=== PATIENT | male | born 1935 | race African-American/Black ===

== ENCOUNTER 2017-06-03 12:04 | Inpatient (IN) ==
[2017-06-03] MEDS ORDERED: ONDANSETRON 4 MG/2 ML VIAL IV PRN (13:40)
[2017-06-03] MEDS ORDERED: ASPIRIN 325 MG TABLET PO STA (13:40)
[2017-06-03] MEDS ORDERED: ENOXAPARIN 100 MG/ML SYRINGE SUBCUT STA (13:40)
[2017-06-03] MEDS ORDERED: NITROGLYCERIN 2% OINT 1 INCH/GM PACK TOP STA (13:40)
[2017-06-03] MEDS ORDERED: MORPHINE 2 MG/1 ML SYRINGE IV PRN (13:40)
[2017-06-03] MEDS ORDERED: ENOXAPARIN 120 MG/0.8 ML SYRINGE SUBCUT ONE (13:56)
[2017-06-03] MEDS ORDERED: ASPIRIN 325 MG TABLET ONE (13:57)
[2017-06-03] MEDS ORDERED: ONDANSETRON 4 MG/2 ML VIAL ONE (13:57)
[2017-06-03] MEDS ORDERED: NITROGLYCERIN 2% OINT 1 INCH/GM PACK TOP ONE (13:57)
[2017-06-03] MEDS ORDERED: MORPHINE 2 MG/1 ML SYRINGE ONE (13:57)
[2017-06-03 14:21] LABS: Basophils % 0.5 % (0.0-0.8); Eosinophils # 0.1 10*3/uL (0.0-0.87); Eosinophils % 0.9 % (0.00-10.9); Hematocrit 43.2 VOL% (42.0-52.0); Hemoglobin 13.7 GM/DL (14.0-18.0); Immature Granulocytes % 0.5 %; Immature Granulocytes Absolute 0.03 #; Lymphocytes # 1.2 10*3/uL (1.4-4.0); Lymphocytes % 18.8 % (21.2-54.2); Mean Corpuscular HGB Conc 31.7 GM/DL (32-36); Mean Corpuscular Hemoglobin 27 PG (27-34); Mean Corpuscular Volume 84.9 FL (87-102); Mean Platelet Volume 10.3 FL (9.6-12.0); Monocytes # 0.4 10*3/uL (0.11-0.8); Monocytes % 6.7 % (1.7-12.7); Neutrophils # 4.7 10*3/uL (1.4-7.4); Neutrophils % 72.6 % (38.7-73.9); Platelet Count 208 T/CUMM (130-400); Red Blood Count 5.09 MC/CUMM (3.8-5.5); Red Cell Distribution Width 14.4 % (9.3-17.3); White Blood Count 6.5 T/CUMM (4-12)
[2017-06-03 14:30] LABS: PT Patient Result 10.7 SECS; Partial Thromboplastin Time 25.9 SECS (0-40)
[2017-06-03 14:32] LABS: Apearance,Urine CLEAR (Clear); Bilirubin,Urine Negative (Negative); Blood, Urine Negative (Negative); Glucose,Urine (UA) 50 mg/dL (Negative); Ketones,Urine Negative (Negative); Mucus,Urine Occasional /LPF (Occasional); Nitrite,Urine Negative (Negative); Protein,Urine Negative; RBC,Urine <1 /HPF (0-4); Squamous Epithelial Cell,Urine Occasional /HPF (0-10); Urine Color Straw (Yellow); Urine Urobilinogen < 2.0 EU/DL (0.2-1.0); WBC,Urine <1 /HPF (0-6)
[2017-06-03 14:43] LABS: Albumin 3.9 G/DL (3.4-5.0); Bilirubin,Total 0.9 MG/DL (0.2-1.0); Calcium 8.5 MG/DL (8.5-10.1); Osmolality,Calculated 280.7 MOS/KG (273-304); Potassium 4.5 MMOL/L (3.5-5.1); Total Protein 7.5 G/DL (6.4-8.3)
[2017-06-03] MEDS ORDERED: METOPROLOL TARTRATE 5 MG/5 ML VIAL IV STA (14:58)
[2017-06-03] MEDS ORDERED: METOPROLOL TARTRATE 5 MG/5 ML VIAL IV ONE (15:08)
[2017-06-03] MEDS ORDERED: hydrALAZINE 20 MG/1 ML VIAL IV STA (15:30)
[2017-06-03] MEDS ORDERED: hydrALAZINE 20 MG/1 ML VIAL ONE (15:32)
[2017-06-03] MEDS ORDERED: FUROSEMIDE 40 MG/4 ML VIAL IV STA (16:02)
[2017-06-03 16:20] LABS: Risk Ratio 4.78; VLDL CHOLESTEROL 19.2 MG/DL
[2017-06-03] MEDS ORDERED: FUROSEMIDE 40 MG/4 ML VIAL ONE (16:23)
[2017-06-03] MEDS ORDERED: ACETAMINOPHEN 325 MG TABLET PO PRN (16:28)
[2017-06-03] MEDS ORDERED: MAGNESIUM SULF RIDER 2 GM in PREMIX 1 EACH IV PRN (16:28)
[2017-06-03] MEDS ORDERED: MAGNESIUM SULF RIDER 4 GM in PREMIX 1 EACH IV PRN (16:28)
[2017-06-03] MEDS ORDERED: POTASSIUM CHLORIDE 20 MEQ TABLET PO PRN ×2 (16:28)
[2017-06-03] MEDS ORDERED: ZALEPLON 5 MG CAPSULE PO PRN (16:28)
[2017-06-03] MEDS ORDERED: NITROGLYCERIN SL 0.4 MG TABLET SL PRN (16:28)
[2017-06-03] MEDS ORDERED: INSULIN REGULAR 100 UNIT/ML SUBCUT ONE (16:28)
[2017-06-03] MEDS ORDERED: DEXTROSE 50% 25 GM/50 ML VIAL IV PRN (20:23)
[2017-06-03] MEDS ORDERED: GLUCAGON 1 MG VIAL IM PRN (20:23)
[2017-06-03] MEDS ORDERED: FAMOTIDINE 20 MG TABLET PO SCH (21:00)
[2017-06-03] MEDS ORDERED: CARVEDILOL 3.125 MG TABLET PO SCH (21:00)
[2017-06-03] MEDS ORDERED: GABAPENTIN 300 MG CAPSULE PO SCH (21:00)
[2017-06-04 05:59] LABS: Basophils % 0.4 % (0.0-0.8); Eosinophils # 0.1 10*3/uL (0.0-0.87); Eosinophils % 1.3 % (0.00-10.9); Hematocrit 40.3 VOL% (42.0-52.0); Hemoglobin 13.3 GM/DL (14.0-18.0); Immature Granulocytes % 0.2 %; Immature Granulocytes Absolute 0.01 #; Lymphocytes # 1.3 10*3/uL (1.4-4.0); Lymphocytes % 28.4 % (21.2-54.2); Mean Corpuscular Hemoglobin 27 PG (27-34); Mean Corpuscular Volume 81.9 FL (87-102); Mean Platelet Volume 10.7 FL (9.6-12.0); Monocytes # 0.6 10*3/uL (0.11-0.8); Monocytes % 13.5 % (1.7-12.7); Neutrophils # 2.5 10*3/uL (1.4-7.4); Neutrophils % 56.2 % (38.7-73.9); Platelet Count 203 T/CUMM (130-400); Red Blood Count 4.92 MC/CUMM (3.8-5.5); Red Cell Distribution Width 14.4 % (9.3-17.3); White Blood Count 4.5 T/CUMM (4-12)
[2017-06-04 06:43] LABS: Albumin 3.3 G/DL (3.4-5.0); Bilirubin,Total 0.8 MG/DL (0.2-1.0); Calcium 8.3 MG/DL (8.5-10.1); Osmolality,Calculated 281.5 MOS/KG (273-304); Potassium 3.8 MMOL/L (3.5-5.1); Total Protein 6.4 G/DL (6.4-8.3)
[2017-06-04] MEDS ORDERED: guaiFENesin 200 MG/10 ML UDCUP PO PRN (08:46)
[2017-06-04] MEDS ORDERED: amLODIPine 5 MG TABLET PO SCH (09:00)
[2017-06-04] MEDS: ASPIRIN EC 81 MG TABLET PO SCH (09:00)
[2017-06-04] MEDS: hydrALAZINE 20 MG/1 ML VIAL IV PRN ×2 (09:02→16:12)
[2017-06-04] MEDS: cefTRIAXone 1,000 MG VIAL IM SCH (09:31)
[2017-06-04] MEDS ORDERED: ALBUTEROL/IPRATROPIUM 3 ML NEB RESP TX PRN (10:59)
[2017-06-04] MEDS: METOPROLOL TARTRATE 25 MG TABLET PO SCH ×2 (11:37→21:45)
[2017-06-04] MEDS: ALBUTEROL/IPRATROPIUM 3 ML NEB RESP TX SCH ×2 (13:18→20:10)
[2017-06-04] MEDS: DORNASE ALFA 2.5 MG/2.5 ML VIAL RESP TX SCH ×2 (13:30→20:10)
[2017-06-04] MEDS: ACETAMINOPHEN 325 MG TABLET PO PRN (17:02)
[2017-06-05] MEDS: ALBUTEROL/IPRATROPIUM 3 ML NEB RESP TX SCH ×4 (01:15→19:20)
[2017-06-05] MEDS: DORNASE ALFA 2.5 MG/2.5 ML VIAL RESP TX SCH ×2 (07:17→19:37)
[2017-06-05] MEDS: METOPROLOL TARTRATE 25 MG TABLET PO SCH ×2 (08:58→21:37)
[2017-06-05] MEDS: cefTRIAXone 1,000 MG VIAL IM SCH (08:58)
[2017-06-05] MEDS: ASPIRIN EC 81 MG TABLET PO SCH (08:59)
[2017-06-05] MEDS: hydrALAZINE 20 MG/1 ML VIAL IV PRN ×2 (11:59→17:06)
[2017-06-05] MEDS: ACETAMINOPHEN 325 MG TABLET PO PRN (18:33)
[2017-06-06] MEDS: ALBUTEROL/IPRATROPIUM 3 ML NEB RESP TX SCH ×4 (01:00→20:22)
[2017-06-06] MEDS: hydrALAZINE 20 MG/1 ML VIAL IV PRN ×3 (05:35→16:57)
[2017-06-06 05:54] LABS: Calcium 8.3 MG/DL (8.5-10.1); Osmolality,Calculated 286.4 MOS/KG (273-304); Potassium 4.1 MMOL/L (3.5-5.1)
[2017-06-06] MEDS: DORNASE ALFA 2.5 MG/2.5 ML VIAL RESP TX SCH ×2 (08:20→20:22)
[2017-06-06] MEDS: ASPIRIN EC 81 MG TABLET PO SCH (08:47)
[2017-06-06] MEDS: METOPROLOL TARTRATE 25 MG TABLET PO SCH ×2 (08:47→21:44)
[2017-06-06] MEDS: cefTRIAXone 1,000 MG VIAL IM SCH (08:48)
[2017-06-06] MEDS ORDERED: LOSARTAN 25 MG TABLET PO SCH (12:00)
[2017-06-06] MEDS ORDERED: INSULIN REGULAR 100 UNIT/ML ONE (12:40)
[2017-06-06] MEDS: INSULIN REGULAR 100 UNIT/ML SUBCUT SCH ×3 (12:52→21:46)
[2017-06-06] MEDS: ACETAMINOPHEN 325 MG TABLET PO PRN (21:44)
[2017-06-07] MEDS: ALBUTEROL/IPRATROPIUM 3 ML NEB RESP TX SCH ×4 (00:02→18:50)
[2017-06-07 04:48] LABS: Basophils % 0.7 % (0.0-0.8); Eosinophils % 0.7 % (0.00-10.9); Hematocrit 41.6 VOL% (42.0-52.0); Hemoglobin 13.7 GM/DL (14.0-18.0); Immature Granulocytes % 0.3 %; Immature Granulocytes Absolute 0.01 #; Lymphocytes % 33.6 % (21.2-54.2); Mean Corpuscular HGB Conc 32.9 GM/DL (32-36); Mean Corpuscular Hemoglobin 27 PG (27-34); Mean Corpuscular Volume 81.4 FL (87-102); Mean Platelet Volume 10.4 FL (9.6-12.0); Monocytes # 0.7 10*3/uL (0.11-0.8); Monocytes % 23.3 % (1.7-12.7); Neutrophils # 1.2 10*3/uL (1.4-7.4); Neutrophils % 41.4 % (38.7-73.9); Platelet Count 158 T/CUMM (130-400); Red Blood Count 5.11 MC/CUMM (3.8-5.5); Red Cell Distribution Width 14.8 % (9.3-17.3); White Blood Count 2.9 T/CUMM (4-12)
[2017-06-07 04:49] LABS: PT Patient Result 10.9 SECS; Partial Thromboplastin Time 26.3 SECS (0-40)
[2017-06-07 05:41] LABS: Giant Platelets Few; Hypochromasia 1+; Lymphocytes 35 % (20-55); Platelet Estimate Normal; Segmented Neutrophils 41 % (50-85); Total Cells Counted 100
[2017-06-07 05:42] LABS: Ovalocytes Slight
[2017-06-07] MEDS ORDERED: BENZONATATE 100 MG CAPSULE PO ONE (07:30)
[2017-06-07] MEDS ORDERED: diphenhydrAMINE 50 MG/1 ML VIAL IM ONE (07:30)
[2017-06-07] MEDS ORDERED: MEPERIDINE 50 MG/1 ML VIAL IM ONE (07:30)
[2017-06-07] MEDS: DORNASE ALFA 2.5 MG/2.5 ML VIAL RESP TX SCH ×2 (07:35→18:50)
[2017-06-07] MEDS ORDERED: LIDOCAINE 2% 20 ML VIAL RESP TX ONE (08:00)
[2017-06-07] MEDS ORDERED: LIDOCAINE 2% VISCOUS 100 ML BOTTLE SWISH/SPIT ONE (08:00)
[2017-06-07] MEDS ORDERED: LIDOCAINE 1% 20 ML VIAL MISC INJ ONE (08:00)
[2017-06-07] MEDS: INSULIN REGULAR 100 UNIT/ML SUBCUT SCH ×5 (08:36→21:39)
[2017-06-07] MEDS: ASPIRIN EC 81 MG TABLET PO SCH (08:39)
[2017-06-07] MEDS: METOPROLOL TARTRATE 25 MG TABLET PO SCH ×2 (08:39→21:40)
[2017-06-07] MEDS: cefTRIAXone 1,000 MG VIAL IM SCH (08:45)
[2017-06-07] MEDS ORDERED: LOSARTAN 50 MG TABLET PO SCH (09:00)
[2017-06-07 09:36] LABS: Calcium 8.3 MG/DL (8.5-10.1); Osmolality,Calculated 281.7 MOS/KG (273-304); Potassium 3.8 MMOL/L (3.5-5.1)
[2017-06-07] MEDS ORDERED: EPINEPHrine 1 MG/ML VIAL ET ONE (10:30)
[2017-06-07] MEDS ORDERED: MIDAZOLAM 2 MG/2 ML VIAL IV ONE (10:51)
[2017-06-07] MEDS ORDERED: MIDAZOLAM 2 MG/2 ML VIAL ONE (11:18)
[2017-06-07] MEDS: ACETAMINOPHEN 325 MG TABLET PO PRN (21:39)
[2017-06-07] MEDS: hydrALAZINE 20 MG/1 ML VIAL IV PRN (21:40)
[2017-06-08] MEDS: ALBUTEROL/IPRATROPIUM 3 ML NEB RESP TX SCH ×4 (00:40→20:05)
[2017-06-08 04:42] LABS: Basophils % 0.7 % (0.0-0.8); Eosinophils % 0.7 % (0.00-10.9); Hematocrit 38.7 VOL% (42.0-52.0); Hemoglobin 12.5 GM/DL (14.0-18.0); Immature Granulocytes % 0.4 %; Immature Granulocytes Absolute 0.01 #; Lymphocytes % 33.8 % (21.2-54.2); Mean Corpuscular HGB Conc 32.3 GM/DL (32-36); Mean Corpuscular Hemoglobin 27 PG (27-34); Mean Platelet Volume 11.2 FL (9.6-12.0); Monocytes # 0.7 10*3/uL (0.11-0.8); Monocytes % 23.5 % (1.7-12.7); Neutrophils # 1.2 10*3/uL (1.4-7.4); Neutrophils % 40.9 % (38.7-73.9); Platelet Count 130 T/CUMM (130-400); Red Blood Count 4.66 MC/CUMM (3.8-5.5); Red Cell Distribution Width 14.6 % (9.3-17.3); White Blood Count 2.8 T/CUMM (4-12)
[2017-06-08 05:13] LABS: Eosinophils 1 % (0-10); Lymphocytes 35 % (20-55); Platelet Estimate Adequate; Segmented Neutrophils 44 % (50-85); Total Cells Counted 100
[2017-06-08 05:14] LABS: Atypical Lymphocytes Few
[2017-06-08 05:21] LABS: Osmolality,Calculated 284.7 MOS/KG (273-304); Potassium 3.6 MMOL/L (3.5-5.1)
[2017-06-08] MEDS: DORNASE ALFA 2.5 MG/2.5 ML VIAL RESP TX SCH ×2 (07:06→20:05)
[2017-06-08] MEDS: LOSARTAN 50 MG TABLET PO SCH (08:25)
[2017-06-08] MEDS: ASPIRIN EC 81 MG TABLET PO SCH (08:25)
[2017-06-08] MEDS: INSULIN REGULAR 100 UNIT/ML SUBCUT SCH ×4 (08:25→22:05)
[2017-06-08] MEDS: METOPROLOL TARTRATE 25 MG TABLET PO SCH ×2 (08:26→22:04)
[2017-06-08] MEDS: cefTRIAXone 1,000 MG VIAL IM SCH (08:29)
[2017-06-09] MEDS: ALBUTEROL/IPRATROPIUM 3 ML NEB RESP TX SCH ×4 (00:36→19:31)
[2017-06-09 04:39] LABS: Basophils % 0.8 % (0.0-0.8); Eosinophils # 0.1 10*3/uL (0.0-0.87); Eosinophils % 1.9 % (0.00-10.9); Hematocrit 37.7 VOL% (42.0-52.0); Hemoglobin 12.5 GM/DL (14.0-18.0); Immature Granulocytes % 0.4 %; Immature Granulocytes Absolute 0.01 #; Lymphocytes % 39.2 % (21.2-54.2); Mean Corpuscular HGB Conc 33.2 GM/DL (32-36); Mean Corpuscular Hemoglobin 27 PG (27-34); Mean Corpuscular Volume 80.9 FL (87-102); Mean Platelet Volume 10.6 FL (9.6-12.0); Monocytes # 0.6 10*3/uL (0.11-0.8); Monocytes % 23.1 % (1.7-12.7); Neutrophils # 0.9 10*3/uL (1.4-7.4); Neutrophils % 34.6 % (38.7-73.9); Platelet Count 120 T/CUMM (130-400); Red Blood Count 4.66 MC/CUMM (3.8-5.5); Red Cell Distribution Width 14.4 % (9.3-17.3); White Blood Count 2.6 T/CUMM (4-12)
[2017-06-09 04:49] LABS: Partial Thromboplastin Time 26.1 SECS (0-40)
[2017-06-09 05:01] LABS: Eosinophils 2 % (0-10); Hypochromasia 1+; Lymphocytes 36 % (20-55); Microcytosis 1+; Ovalocytes Slight; Segmented Neutrophils 40 % (50-85); Total Cells Counted 100
[2017-06-09 05:02] LABS: Platelet Estimate Adequate
[2017-06-09] MEDS: INSULIN REGULAR 100 UNIT/ML SUBCUT SCH ×4 (07:48→21:32)
[2017-06-09] MEDS ORDERED: MEPERIDINE 50 MG/1 ML VIAL IM ONE (08:00)
[2017-06-09] MEDS ORDERED: diphenhydrAMINE 50 MG/1 ML VIAL IM ONE (08:00)
[2017-06-09] MEDS ORDERED: BENZONATATE 100 MG CAPSULE PO ONE (08:00)
[2017-06-09] MEDS: DORNASE ALFA 2.5 MG/2.5 ML VIAL RESP TX SCH ×2 (08:01→19:31)
[2017-06-09] MEDS ORDERED: LIDOCAINE 2% 20 ML VIAL RESP TX ONE (08:30)
[2017-06-09] MEDS ORDERED: LIDOCAINE 2% VISCOUS 100 ML BOTTLE SWISH/SPIT ONE (08:30)
[2017-06-09] MEDS ORDERED: EPINEPHrine 1 MG/ML VIAL ET ONE (08:30)
[2017-06-09] MEDS ORDERED: LIDOCAINE 1% 20 ML VIAL MISC INJ ONE (08:30)
[2017-06-09] MEDS ORDERED: MIDAZOLAM 2 MG/2 ML VIAL ONE (09:41)
[2017-06-09] MEDS ORDERED: MIDAZOLAM 2 MG/2 ML VIAL IV ONE (10:20)
[2017-06-09] MEDS ORDERED: EPINEPHrine 1 MG/ML VIAL ONE (11:21)
[2017-06-09] MEDS: METOPROLOL TARTRATE 25 MG TABLET PO SCH ×2 (13:01→21:06)
[2017-06-09] MEDS: LOSARTAN 50 MG TABLET PO SCH (13:01)
[2017-06-09] MEDS: hydrALAZINE 20 MG/1 ML VIAL IV PRN (13:02)
[2017-06-09] MEDS: ASPIRIN EC 81 MG TABLET PO SCH (13:02)
[2017-06-09] MEDS: cefTRIAXone 1,000 MG VIAL IM SCH (13:02)
[2017-06-10] MEDS: ALBUTEROL/IPRATROPIUM 3 ML NEB RESP TX SCH ×3 (00:08→13:49)
[2017-06-10 05:28] LABS: % Iron Saturation 19.1 % (18-50); Ferritin 358.6 ng/ml (26-388)
[2017-06-10] MEDS ORDERED: GLUCAGON 1 MG VIAL IM PRN (07:09)
[2017-06-10] MEDS ORDERED: DEXTROSE 50% 25 GM/50 ML VIAL IV PRN (07:09)
[2017-06-10 07:28] LABS: Folate 9.1 NG/ML (5.4-24.0)
[2017-06-10] MEDS: INSULIN REGULAR 100 UNIT/ML SUBCUT SCH ×3 (07:42→15:54)
[2017-06-10] MEDS: DORNASE ALFA 2.5 MG/2.5 ML VIAL RESP TX SCH (07:54)
[2017-06-10] MEDS: METOPROLOL TARTRATE 25 MG TABLET PO SCH (08:56)
[2017-06-10] MEDS: hydrALAZINE 20 MG/1 ML VIAL IV PRN (08:56)
[2017-06-10] MEDS: LOSARTAN 50 MG TABLET PO SCH (08:56)
[2017-06-10] MEDS: ASPIRIN EC 81 MG TABLET PO SCH (08:57)
[2017-06-10] MEDS: cefTRIAXone 1,000 MG VIAL IM SCH (08:57)
[2017-06-10 16:53] VITALS: BP 140/79
== END 2017-06-10 16:36 | disposition home or self-care (01) | DRG 167 ==
LOC: N.ED 12:04 → N.EDINP 17:27 → N.TELEN 18:28
PROVIDERS: ADMIT Family Medicine; ATTEND Family Medicine
PROC: BRONCHB (2017-06-09 09:35)